=== PATIENT | male | born 1990 | race Hispanic/Latino ===

== ENCOUNTER 2020-11-12 11:28 | Inpatient (IN) | payer OTHER, SELFPAY ==
[2020-11-12] MEDS ORDERED: MAGNESIUM SULFATE 1 gm IVPB 1 GM/100 ML BAG IV ONE (12:51)
[2020-11-12] MEDS ORDERED: dexAMETHasone 10 MG/ML VIAL ONE (12:51)
[2020-11-12 13:09] LABS: Absolute Lymphocytes (CBC) 1.3 K/uL (0.7-4.9); Basophils % 0.2 % (0-1.3); Hematocrit 41.5 % (39.6-49.0); Lymphocytes % 6.7 % (15.3-44.8); MPV 7.4 fL (7.6-11.3); RBC Red Blood Cell Count 4.96 M/uL (4.33-5.43)
[2020-11-12 13:16] LABS: Albumin 3.5 g/dL (3.4-5.0); Bilirubin Total 0.5 mg/dL (0.2-1.0); Ferritin 400.1 ng/mL (26-388); Protein, Total 8.5 g/dL (6.4-8.2)
[2020-11-12 13:46] LABS: Blood Morphology Comment NOT SEEN (NOT SEEN); Platelet Estimate ADEQ
--- NOTE | 2020-11-12 13:57 | EDPHYS ---
Physician Documentation [facility] Name: Aaron Hernandez Age: 30 yrs Sex: Male : 1990 Arrival Date: 11/12/2020 Time: 11:30 Bed 26 Private MD: ED Physician Osmar Evans HPI: 11/12 12:15 This 30 yrs old Male presents to ER via Ambulatory with complaints of Low O2 jmm Covid+. 12:15 The patient has shortness of breath at rest. Onset: The symptoms/episode began/occurred jmm gradually, 4 day(s) ago. Duration: The symptoms are continuous, and are steadily getting worse. The patient's shortness of breath is aggravated by nothing, is alleviated by nothing. Associated signs and symptoms: Pertinent positives: non-productive cough, Pertinent negatives: loss of consciousness, vomiting. Patient recently diagnosed with covid 19 and and prescribed hydroxychloroquine and azithromycin with no relief of symptoms. . Historical: - Allergies: 11:50 No Known Allergies; ss - PMHx: 11:50 Ulcers; ss - PSHx: 11:50 None; ss - Immunization history:: Adult Immunizations up to date. - Social history:: Smoking status: Patient denies any tobacco usage or history of. ROS: 12:15 Cardiovascular: Negative for chest pain, palpitations, and edema. jmm 12:15 Constitutional: Positive for body aches, fever. 12:15 Respiratory: Positive for shortness of breath. 12:15 All other systems are negative. Exam: 12:15 Constitutional: This is a well developed, well nourished patient who is awake, alert, jmm and in no acute distress. Head/Face: atraumatic. Eyes: EOMI, no conjunctival erythema appreciated ENT: Moist Mucus Membranes Neck: Trachea midline, Supple Chest/axilla: Normal chest wall appearance and motion. Cardiovascular: Regular rate and rhythm. No edema appreciated Respiratory: Normal respirations, no respiratory distress appreciated Abdomen/GI: Non distended, soft Back: Normal ROM Skin: General appearance color normal MS/ Extremity: Moves all extremities, no obvious deformities appreciated, no edema noted to the lower extremities Neuro: Awake and alert, normal gait Psych: Behavior is normal, Mood is normal, Patient is cooperative and pleasant Vital Signs: 11:47 BP 133 / 94; Pulse 114; Resp 26; Temp 97.5(TE); Pulse Ox 95% ; Weight 113.4 kg; Height ss 5 ft. 7 in. (170.18 cm); Pain 7/10; 13:15 BP 103 / 76; Pulse 91; Resp 24; Pulse Ox 86% on R/A; hb 14:15 BP 118 / 82; Pulse 89; Resp 24; Pulse Ox 96% on 2 lpm NC; hb 15:41 BP 121 / 74; Pulse 88; Resp 24; Pulse Ox 95% on 2 lpm NC; hb 16:19 BP 118 / 86; Pulse 95; Resp 22; Pulse Ox 93% on 2 lpm NC; hb 11:47 Body Mass Index 39.16 (113.40 kg, 170.18 cm) ss MDM: 12:15 Patient medically screened. [facility] 13:55 Data reviewed: vital signs, nurses notes. Counseling: I had a detailed discussion with neri the patient and/or guardian regarding: the historical points, exam findings, and any diagnostic results supporting the discharge/admit diagnosis, lab results, radiology results, the need for further work-up and treatment in the hospital. ED course: I discussed the patient with Mr. Valle whom accepted the patient to Dr. Rubio service. . 11/12 12:17 Order name: CBC with Diff; Complete Time: 13:54 [facility] 11/12 12:17 Order name: CMP; Complete Time: 13:17 [facility] 11/12 12:17 Order name: Ferritin; Complete Time: 13:17 [facility] 11/12 12:17 Order name: CRP; Complete Time: 13:17 [facility] 11/12 12:17 Order name: D-Dimer; Complete Time: 13:19 [facility] 11/12 13:21 Order name: Manual Differential; Complete Time: 13:54 [facility] 11/12 17:48 Order name: PTT, Activated Partial Thromb; Complete Time: 18:20 [facility] 11/13 05:11 Order name: CBC with Automated Diff [facility] 11/13 05:23 Order name: Comprehensive Metabolic Panel [facility] 11/13 06:43 Order name: C-Reactive Protein [facility] 11/13 06:43 Order name: Ferritin [facility] 11/13 08:12 Order name: Procalcitonin [facility] 11/13 17:36 Order name: Blood Culture [facility] 11/14 06:10 Order name: CBC with Automated Diff [facility] 11/12 17:11 Order name: RAD; Complete Time: 17:17 [facility] 11/14 06:25 Order name: C-Reactive Protein [facility]MS 11/14 06:25 Order name: Ferritin EDMS 11/14 08:38 Order name: Manual Differential EDMS Administered Medications: 12:47 Drug: Decadron - Dexamethasone 10 mg Route: IVP; Site: right antecubital; hb 12:47 Drug: Magnesium Sulfate 1 grams Route: IVPB; Infused Over: 1 hrs; Site: right hb antecubital; 11/13 00:04 CANCELLED (Physician Discretion): GI Cocktail without - (Maalox Suspension 30 mg2 ml, Lidocaine Liquid 2 % 15 ml) PO once Disposition: 11/12/20 13:56 Hospitalization ordered by Indio Rubio for Observation. Preliminary diagnosis are Coronavirus infection, unspecified, Hypoxia. - Bed requested for [facility] ER HOLD. - Status is Observation. aa5 - Condition is Stable. - Problem is new. - Symptoms are unchanged. Addendum: 11/16/2020 09:24 Co-signature as Attending Physician, Osmar Evans MD I agree with the assessment and k dr plan of care. Signatures: Dispatcher [employer] EDAK Osmar Evans MD MD [facility] Maurice Nance PA PA [facility] Hailee Baires, RN RN aa5 Amy Hill RN RN Alvina Dela Cruz RN RN Tyrell Cole RN RN mg2 Corrections: (The following items were deleted from the chart) 11/12 17:49 13:56 Hospitalization Ordered by Indio Rubio DO for Observation. Preliminary ss diagnosis is Coronavirus infection, unspecified; Hypoxia. Bed requested for Telemetry/MedSurg (observation). Status is Observation. Condition is Stable. Problem is new. Symptoms are unchanged. neri 11/13 00:04 11/12 23:38 GI Cocktail without - (Maalox 30 ml, Lidocaine 15 ml) PO once mg2 ordered. mg2 11/14 13:37 11/12 17:49 11/12/2020 13:56 Hospitalization Ordered by Indio Rubio DO for aa5 Observation. Preliminary diagnosis is Coronavirus infection, unspecified; Hypoxia. Bed requested for [facility] ER HOLD. Status is Observation. Condition is Stable. Problem is new. Symptoms are unchanged. ss
--- NOTE | 2020-11-12 13:57 | ER ---
Nurse's Notes [facility] Name: Aaron Hernandez Age: 30 yrs Sex: Male : 1990 Arrival Date: 11/12/2020 Time: 11:30 Bed 26 Private MD: Diagnosis: Coronavirus infection, unspecified;Hypoxia Presentation: 11/12 11:47 Chief complaint: Patient states: Diagnosed with COVID on Tuesday. PT reports Low O2 ss 88% at home today. Coronavirus screen: Client denies travel out of the [place] in the last 14 days. Ebola Screen: Patient denies exposure to infectious person. Patient denies travel to an Ebola-affected area in the 21 days before illness onset. Initial Sepsis Screen: Does the patient meet any 2 criteria? Yes Does the patient have a suspected source of infection? No. Patient's initial sepsis screen is negative. Risk Assessment: Do you want to hurt yourself or someone else? Patient reports no desire to harm self or others. Onset of symptoms was November 08, 2020. 11:47 Method Of Arrival: Ambulatory ss 11:47 Acuity: STEPHAN 3 ss Historical: - Allergies: 11:50 No Known Allergies; ss - PMHx: 11:50 Ulcers; ss - PSHx: 11:50 None; ss - Immunization history:: Adult Immunizations up to date. - Social history:: Smoking status: Patient denies any tobacco usage or history of. Screenin:25 Abuse screen: Denies threats or abuse. Nutritional screening: No deficits noted. kg Tuberculosis screening: No symptoms or risk factors identified. Fall Risk None identified. Assessment: 12:07 General: Appears in no apparent distress. Behavior is calm, cooperative, appropriate kg for age, quiet. Pain: Complains of pain in chest Pain currently is 6 out of 10 on a pain scale. at worst was 8 out of 10 on a pain scale. level that patient reports is acceptable is 3 out of 10 on a pain scale. Quality of pain is described as tight Pain began gradually, 2-3 days ago. Is continuous, Alleviated by rest, Aggravated by exercise, increased activity, coughing. Neuro: No deficits noted. Cardiovascular: Heart tones S1 S2 Rhythm is sinus tachycardia Chest pain is described as mild, Pain is 6 out of 10 on a pain scale. quality is tightness. Respiratory: Reports shortness of breath at rest on exertion cough that is non-productive, pain with cough since 11/08 pain with movement since 11/08 pain with respiration since 11/08 Airway is patent Trachea midline Respiratory effort is even, labored, Respiratory pattern is tachypnea Sputum is thick, white Breath sounds are clear bilaterally. the patient has moderate shortness of breath. GI: Reports diarrhea, nausea, vomiting. : No deficits noted. EENT: No deficits noted. Derm: No deficits noted. Musculoskeletal: No deficits noted. 12:23 Reassessment: Did 2 min walk test with patient in room. Lowest the patients 02 on RA kg was 92 % highest HR-162. Pt stated tolerated the walk test okay but stated that he was tired. . 13:16 Reassessment: SpO2 uper 80s on RA, improved to >94% on 2LNC. ELBA Richards notified. hb 14:17 Reassessment: Patient appears in no apparent distress at this time. Patient and/or hb family updated on plan of care and expected duration. Pain level reassessed. Admission ordered, awaiting room assignment at this time. 15:30 Reassessment: Patient appears in no apparent distress at this time. No changes from hb previously documented assessment. Patient and/or family updated on plan of care and expected duration. Pain level reassessed. 16:19 Reassessment: Patient appears in no apparent distress at this time. No changes from hb previously documented assessment. Patient and/or family updated on plan of care and expected duration. Pain level reassessed. Patient is alert, oriented x 3, equal unlabored respirations, skin warm/dry/pink. Vital Signs: 11:47 BP 133 / 94; Pulse 114; Resp 26; Temp 97.5(TE); Pulse Ox 95% ; Weight 113.4 kg; Height ss 5 ft. 7 in. (170.18 cm); Pain 7/10; 13:15 BP 103 / 76; Pulse 91; Resp 24; Pulse Ox 86% on R/A; hb 14:15 BP 118 / 82; Pulse 89; Resp 24; Pulse Ox 96% on 2 lpm NC; hb 15:41 BP 121 / 74; Pulse 88; Resp 24; Pulse Ox 95% on 2 lpm NC; hb 16:19 BP 118 / 86; Pulse 95; Resp 22; Pulse Ox 93% on 2 lpm NC; hb 11:47 Body Mass Index 39.16 (113.40 kg, 170.18 cm) ED Course: 11:30 Patient arrived in ED. rg4 11:49 Triage completed. ss 11:50 Arm band placed on right wrist. 11:54 Maurice Nance PA is PHCP. [facility] 11:54 Osmar Evans MD is Attending Physician. m 12:07 Carla Tompkins is Primary Nurse. kg 12:46 Inserted saline lock: 20 gauge in right antecubital area, using aseptic technique. hb Blood collected. 13:56 Indio Rubio DO is Hospitalizing Provider. m 19:58 Patient has correct armband on for positive identification. mg2 19:58 No provider procedures requiring assistance completed. Patient admitted, IV remains in mg2 place. 11/13 00:36 Report given to Kassandra FOSTER. kg 03:55 Primary Nurse role handed off by Carla Tompkins 2 20:35 Katerina Le RN is Primary Nurse. [facility] 11/14 09:18 Primary Nurse role handed off by Katerina Le RN 09:18 Carla Tompkins is Primary Nurse. kg Administered Medications: 11/12 12:47 Drug: Decadron - Dexamethasone 10 mg Route: IVP; Site: right antecubital; hb 12:47 Drug: Magnesium Sulfate 1 grams Route: IVPB; Infused Over: 1 hrs; Site: right hb antecubital; 11/13 00:04 CANCELLED (Physician Discretion): GI Cocktail without - (Maalox Suspension 30 mg2 ml, Lidocaine Liquid 2 % 15 ml) PO once Outcome: 11/12 13:56 Decision to Hospitalize by Provider. [facility] 19:58 Admitted to ER Hold. Please see [facility] for further documentation. mg2 19:58 Condition: stable 19:58 Instructed on the need for admit, Demonstrated understanding of instructions. 11/14 13:37 Patient left the ED. aa5 Signatures: Maurice Nance PA PA [facility] Katerina Le, KRISTIN RN cr4 Hailee Baires RN RN aa5 Amy Hill RN RN Alvina Dela Cruz RN RN Damaris Becerril rg4 Rajani Joshi mw2 Gardose, TyrellKRISTIN RN, Kristen kg Corrections: (The following items were deleted from the chart) 11/12 13:19 13:15 BP 103 / 76; Pulse 91bpm; Resp 24bpm; Pulse Ox 89% RA; hb hb 13:20 13:16 Reassessment: Patient appears in no apparent distress at this time. No changes hb from previously documented assessment. hb
--- NOTE | 2020-11-12 15:29 | P.HP ---
Certification for Inpatient With expected LOS: >2 Midnights Patient will require the following post-hospital care: None Practitioner: I am a practitioner with admitting privileges, knowledge of patient current condition, hospital course, and medical plan of care. Services: Services provided to patient in accordance with Admission requirements found in Title 42 Section 412.3 of the Code of Federal Regulations Patient History Date of Service: 11/12/20 Reason for admission: SOB History of Present Illness: Patient is a 30-year-old male with a past medical history significant for asthma and Gastric Ulcer who presents complaint of shortness of breath that has become increasingly worse over time. Patient reported that he initially started having runny nose, congestion, sore throat and chills. Patient indicated that symptoms lasted for 1 week. Patient reported that he tested positive for coviid 19 infection at an outpatient facility 4 days ago. Patient reports associated s igns and symptoms of cough, generalized body aches, chest tightness, nausea, vomiting, diarrhea, loss of appetite, weakness and fatigue. Patient denies any other signs and symptoms. Symptoms are aggravated or relieved by nothing. The patient reported that he checked his O2 sat this morning and noted that it was 88% on room air. Patient decided to present to the hospital due to worsening shortness of breath and other symptoms. Allergies No Known Allergies Allergy (Unverified 10/02/15 04:06) Home medications list reviewed: Yes - Past Medical/Surgical History Diabetic: No -: Asthma - Social History Smoking Status: Never smoker Smoking therapy provided: No Patient receptive to therapy: No Alcohol use: Yes CD- Drugs: No Caffeine use: No Place of Residence: Home Review of Systems General: Fever, Chills, Weakness, Malaise Eyes: Unremarkable ENT: Throat Pain Respiratory: Cough, Shortness of Breath, SOB with Excertion Cardiovascular: Unremarkable Gastrointestinal: Nausea, Vomiting, Diarrhea Genitourinary: Unremarkable Musculoskeletal: Unremarkable Integumentary: Unremarkable Neurological: Weakness Lymphatics: Enlarged lymph nodes Physical Examination - Physical Exam General: Alert, In no apparent distress, Oriented x3, Cooperative, Mild distress HEENT: Atraumatic, Normocephalic, PERRLA, Mucous membr. moist/pink, EOMI, Sclerae nonicteric Neck: Supple, 2+ carotid pulse no bruit, No LAD, Without JVD or thyroid abnormality Respiratory: Diminished, Crackles/rales Cardiovascular: No edema, Regular rate/rhythm, Normal S1 S2 Capillary refill: <2 Seconds Gastrointestinal: Normal bowel sounds, Non-distended, No tenderness Musculoskeletal: No clubbing, No swelling, No tenderness Integumentary: No rashes, No breakdown Neurological: Normal gait, Normal speech, Normal strength at 5/5 x4 extr, Normal tone, Normal affect Lymphatics: No axilla or inguinal lymphadenopathy External genitalia: Deferred Rectal: Deferred - Studies Laboratory Data (last 24 hrs) 11/12/20 12:46: Sodium 136, Potassium 4.0, BUN 16, Creatinine 1.29, Glucose 120 H, Total Bilirubin 0.5, AST 20, ALT 40, Alkaline Phosphatase 52 11/12/20 12:46: WBC 20.10 H*, Hgb 13.6, Hct 41.5, Plt Count 392 Assessment and Plan - Plan --Covid 19 pneumoniae. Patient placed on antibiotics, steroids and albuterol inhaler. Wound Care Rn consulted. Continue supportive care with thiamine\vitamin-D\Famotidine\vitamin-C\zinc. Will await further recommendations from drawer waxer. --Covid 19 infection. Continue current treatment regimen. Continue droplet and contact precautions. Further management per drawer waxer. --Moderate Open asthma exacerbation. Continue albuterol inhaler and current treatment regimen. --Leukocytosis. Blood cultures pending. Continue antibiotics. --Hx of Gastric ulcers. Patient placed Protonix IV. --DVT prophylaxis with Lovenox subQ Discharge Plan: Home Plan to discharge in: Greater than 2 days - Advance Directives Does patient have a Living Will: No Does patient have a Durable POA for Healthcare: No - Code Status/Comfort Care Code Status Assessed: Yes Code Status: Full Code Critical Care: No
[2020-11-12] MEDS ORDERED: AZITHROMYCIN IV 500 MG in NA CHLORIDE 0.9% 250 ML IVPB SCH (16:00)
[2020-11-12] MEDS ORDERED: dexAMETHasone 10 MG/ML VIAL IV SCH (16:00)
[2020-11-12] MEDS ORDERED: CEFTRIAXONE/SWI 1gm 1 GM/10 ML SYR IVP SCH (16:00)
[2020-11-12] MEDS ORDERED: ALBUTEROL INHALER 60 PUFF/8 GM IH PRN (16:37)
[2020-11-12] MEDS ORDERED: ACETAMINOPHEN 500 MG TAB PO PRN (16:37)
[2020-11-12] MEDS ORDERED: ZOLPIDEM TARTRATE 5 MG TABLET PO PRN (16:37)
[2020-11-12] MEDS ORDERED: SODIUM CHLORIDE 0.9% 10ML INJ IV PRN (16:37)
[2020-11-12] MEDS ORDERED: ONDANSETRON 4 MG/2 ML VIAL IV PRN (16:37)
[2020-11-12] MEDS ORDERED: TRAMADOL HCL 50 MG TAB PO PRN (16:37)
[2020-11-12] MEDS: ENOXAPARIN 40 MG/0.4 ML SQ SCH (17:00)
--- NOTE | 2020-11-12 17:10 | RAD REPORT ---
EXAM DESCRIPTION: RAD - Chest Pa And Lat (2 Views) - 11/12/2020 4:56 pm CLINICAL HISTORY: SOB Chest pain. COMPARISON: CHEST SINGLE VIEW dated 09/21/2015 FINDINGS: There is moderately severe bilateral interstitial lung opacities present most compatible w ith pulmonary viral infection. The heart is normal in size.
[2020-11-12] MEDS ORDERED: METHYLPREDNISOLONE 40 MG INJ IV SCH (18:00)
[2020-11-12] MEDS ORDERED: CEFTRIAXONE 1000 MG/VIAL ONE (18:35)
[2020-11-12] MEDS ORDERED: AZITHROMYCIN 500 MG INJ IVPB ONE (18:35)
[2020-11-12] MEDS ORDERED: ENOXAPARIN 40 MG/0.4 ML SQ ONE (18:35)
[2020-11-12] MEDS ORDERED: NA CHLORIDE 0.9% 250 ML ONE (18:35)
[2020-11-12] MEDS ORDERED: FAMOTIDINE 20 MG/2 ML VIAL IV SCH (21:00)
[2020-11-12] MEDS ORDERED: FAMOTIDINE 20 MG/2 ML VIAL IV ONE (22:47)
[2020-11-12 23:35] VITALS: BMI 39.1
[2020-11-13 05:04] LABS: Absolute Lymphocytes (CBC) 1.4 K/uL (0.7-4.9); Basophils % 0.1 % (0-1.3); Hematocrit 38.1 % (39.6-49.0); Lymphocytes % 7.3 % (15.3-44.8); MPV 7.3 fL (7.6-11.3); RBC Red Blood Cell Count 4.63 M/uL (4.33-5.43)
[2020-11-13 05:23] LABS: Albumin 3.1 g/dL (3.4-5.0); Bilirubin Total 0.3 mg/dL (0.2-1.0); Potassium 4.4 mmol/L (3.5-5.1)
[2020-11-13] MEDS ORDERED: BENZONATATE 100 MG CAP PO PRN (06:41)
[2020-11-13 06:42] LABS: Ferritin 461.1 ng/mL (26-388)
[2020-11-13] MEDS: BUDESONIDE 0.25 MG/2 ML NEB NEB SCH ×2 (08:00→19:47)
[2020-11-13] MEDS: ENOXAPARIN 40 MG/0.4 ML SQ SCH (09:00)
[2020-11-13] MEDS ORDERED: VITAMIN D 1000 UNIT TAB PO SCH ×2 (09:00)
[2020-11-13] MEDS: METHYLPREDNISOLONE 125 MG INJ IV SCH ×3 (09:00→21:00)
[2020-11-13] MEDS ORDERED: ZINC SULFATE 220 MG CAP PO SCH (09:00)
[2020-11-13] MEDS: ASPIRIN EC 81 MG TAB PO SCH ×2 (09:00)
[2020-11-13] MEDS ORDERED: ASCORBIC ACID 500 MG TABLET PO SCH (09:00)
[2020-11-13] MEDS: FAMOTIDINE 20 MG TAB PO SCH ×2 (09:00→21:00)
[2020-11-13] MEDS ORDERED: THIAMINE HCL 100 MG TABLET PO SCH (09:00)
[2020-11-13] MEDS ORDERED: PANTOPRAZOLE 40 MG INJ IVP SCH (09:00)
[2020-11-13] MEDS: ASCORBIC ACID 500 MG TABLET PO SCH ×3 (09:00→21:00)
[2020-11-13] MEDS: THIAMINE HCL 100 MG TABLET PO SCH ×2 (09:00→21:00)
--- NOTE | 2020-11-13 09:15 | P.DS ---
Admission Date: 11/12/20 Discharge Date: 11/13/20 Primary Care Provider: ADEN Disposition: ROUTINE DISCHARGE Discharge Condition: GOOD Reason for Admission: SOB Consultations: Pulmonary-Dr. Dubois Procedures: COVID: Positive CXR: COMPARISON: CHEST SINGLE VIEW dated 09/21/2015 FINDINGS: There is moderately severe bilateral interstitial lung opacities present most compatible with pulmonary viral infection. The heart is normal in size. Medical problem list: Shortness of breath secondary to bilateral COVID-19 pneumonia with hypoxia Asthma Brief History of Present Illness: 30-year-old male with a past medical history significant for asthma and Gastric Ulcer who presents complaint of shortness of breath that has become increasingly worse over time. Patient reported that he initially started having runny nose, congestion, sore throat and chills. Patient indicated that symptoms lasted for 1 week. Patient reported that he tested positive for COVID-19 infection at an outpatient facility 4 days ago. At that time patient was given a shot of Solu-Medrol. He was sent home with Plaquenil, inhaler. His condition has not improved. Patient was evaluated in the emergency room yesterday. He was found to be hypoxic. X-ray shows evidence of Covid pneumonia. Patient admitted for further evaluation and treatment. Hospital Course: Patient presented with increasing shortness of breath, fatigue and cough. Patient was diagnosed with Covid pneumonia recently. He was sent home with Plaquenil and inhaler therapy without any improvement. Patient was found to be hypoxic. Patient required hospitalization. Patient has improved with IV steroids and supplementation. Patient seen by pulmonology. At discharge patient without significant shortness of breath. Patient still requires oxygen at discharge. At discharge home oxygen will be arranged to maintain sats above 93%. Patient currently on 2 L per nasal cannula. At discharge patient will continue with prednisone 20 mg 1 pill twice daily for 7 days then 1 pill once daily for 7 days. With his history of asthma patient will continue with Pulmicort 1 puff twice daily and albuterol 2 puffs 3 times a day as needed for shortness of breath. Patient will be given a limited supply of Tessalon Perles 100 mg 1 pill 3 times a day as needed for cough. Patient will continue with oral supplementation including vitamin C 500 mg 3 times a day, vitamin D 2000 units daily, zinc 220 mg daily, and thiamine 100 mg 1 pill twice daily. Patient will also continue with aspirin 81 mg daily. Patient will follow up with pulmonology within 1 week to follow-up his hospitalization and continue his care. Patient may also follow-up with his PCP within 1 week to follow-up his hospitalization. Patient will continue with CDC guidelines on Covid isolation. Patient will continue with proning, incentive spirometer use, facemask use, social distancing and handwashing at home. Education on COVID-19 will be provided. Further adjustment in medication and oxygen can be done by pulmonology at follow-up. As mentioned above patient with history of asthma. Will recommend to start Pulmicort 1 puff twice daily. Patient will continue with albuterol 2 puffs 3 t imes a day as needed for shortness of breath. Recommend follow-up with pulmonology to further monitor and adjust medication. Patient likely with underlying GERD. At discharge patient will continue with Pepcid 20 mg 1 pill twice daily. Vital Signs/Physical Exam: Temp Pulse Resp BP Pulse Ox 97.9 F 96 H 18 103/63 91 11/13/20 08:00 11/13/20 08:00 11/13/20 08:00 11/13/20 08:00 11/13/20 08:00 General: Alert, In no apparent distress, Oriented x3, Cooperative HEENT: Atraumatic Neck: Supple Respiratory: Other (Good air movement bilateral. Currently on 2 L per nasal cannula. Slight crackles to the bases) Cardiovascular: Normal pulses, Regular rate/rhythm Gastrointestinal: Normal bowel sounds, Soft and benign, Non-distended, No tenderness, No masses, No rebound, No guarding Musculoskeletal: No erythema, No tenderness, No warmth Integumentary: No tenderness/swelling Neurological: Normal speech, Normal strength at 5/5 x4 extr, Normal tone, Normal affect Laboratory Data at Discharge: WBC 19.80 K/uL (4.3-10.9) H 11/13/20 04:25 Hgb 13.2 g/dL (13.6-17.9) L 11/13/20 04:25 Hct 38.1 % (39.6-49.0) L 11/13/20 04:25 Plt Count 401 K/uL (152-406) 11/13/20 04:25 APTT 26.3 SECONDS (24.3-36.9) 11/12/20 17:22 Sodium 137 mmol/L (136-145) 11/13/20 04:25 Potassium 4.4 mmol/L (3.5-5.1) 11/13/20 04:25 BUN 18 mg/dL (7-18) 11/13/20 04:25 Creatinine 1.05 mg/dL (0.55-1.3) 11/13/20 04:25 Glucose 129 mg/dL (74-106) H 11/13/20 04:25 Total Bilirubin 0.3 mg/dL (0.2-1.0) 11/13/20 04:25 AST 21 U/L (15-37) 11/13/20 04:25 ALT 40 U/L (12-78) 11/13/20 04:25 Alkaline Phosphatase 50 U/L (45-117) 11/13/20 04:25 Home Medications: Albuterol Inhaler [Ventolin Inhaler*] 2 puff IH Q6H PRN #1 hfa.aer.ad 11/13/20 Ascorbic Acid [Vitamin C*] 500 mg PO TID #90 tablet 11/13/20 Aspirin [Aspirin EC 81 MG] 81 mg PO DAILY #90 tablet. 11/13/20 Benzonatate [Tessalon Perle*] 100 mg PO TID PRN #10 cap 11/13/20 Budesonide [Pulmicort Flexhaler] 1 puff IH BID #1 aer.pow.ba 11/13/20 Cholecalciferol (Vitamin D3) [Vitamin D 1000 Iu Tab*] 2,000 unit PO DAILY #60 tab 11/13/20 Famotidine [Pepcid*] 20 mg PO BID #60 tab 11/13/20 Thiamine HCl [Vitamin B-1*] 100 mg PO BID #60 tablet 11/13/20 Zinc Sulfate [Zinc Sulfate*] 220 mg PO DAILY #30 cap 11/13/20 predniSONE [Prednisone*] 20 mg PO SEECOM #21 tab 11/13/20 New Medications: Aspirin [Aspirin EC 81 MG] 81 mg PO DAILY #90 tablet. Famotidine [Pepcid*] 20 mg PO BID #60 tab predniSONE [Prednisone*] 20 mg PO SEECOM #21 tab Budesonide [Pulmicort Flexhaler] 1 puff IH BID #1 aer.pow.ba Benzonatate [Tessalon Perle*] 100 mg PO TID PRN #10 cap PRN Reason: Cough Albuterol Inhaler [Ventolin Inhaler*] 2 puff IH Q6H PRN #1 hfa.aer.ad PRN Reason: Shortness Of Breath Thiamine HCl [Vitamin B-1*] 100 mg PO BID #60 tablet Ascorbic Acid [Vitamin C*] 500 mg PO TID #90 tablet Cholecalciferol (Vitamin D3) [Vitamin D 1000 Iu Tab*] 2,000 unit PO DAILY #60 tab Zinc Sulfate [Zinc Sulfate*] 220 mg PO DAILY #30 cap Physician Discharge Instructions: Patient presented with increasing shortness of breath, fatigue and cough. Patient was diagnosed with Covid pneumonia recently. He was sent home with Plaquenil and inhaler therapy without any improvement. Patient was found to be hypoxic. Patient required hospitalization. Patient has improved with IV steroids and supplementation. Patient seen by pulmonology. At discharge patient without significant shortness of breath. Patient still requires oxygen at discharge. At discharge home oxygen will be arranged to maintain sats above 93%. Patient currently on 2 L per nasal cannula. At discharge patient will continue with prednisone 20 mg 1 pill twice daily for 7 days then 1 pill once daily for 7 days. With his history of asthma patient will continue with Pulmicort 1 puff twice daily and albuterol 2 puffs 3 times a day as needed for shortness of breath. Patient will be given a limited supply of Tessalon Perles 100 mg 1 pill 3 times a day as needed for cough. Patient will continue with oral supplementation including vitamin C 500 mg 3 times a day, vitamin D 2000 units daily, zinc 220 mg daily, and thiamine 100 mg 1 pill twice daily. Patient will also continue with aspirin 81 mg daily. Patient will follow up with pulmonology within 1 week to follow-up his hospitalization and continue his c are. Patient may also follow-up with his PCP within 1 week to follow-up his hospitalization. Patient will continue with CDC guidelines on Covid isolation. Patient will continue with proning, incentive spirometer use, facemask use, social distancing and handwashing at home. Education on COVID-19 will be provided. Further adjustment in medication and oxygen can be done by pulmonology at follow-up. As mentioned above patient with history of asthma. Will recommend to start Pulmicort 1 puff twice daily. Patient will continue with albuterol 2 puffs 3 times a day as needed for shortness of breath. Recommend follow-up with pulmonology to further monitor and adjust medication. Patient likely with underlying GERD. At discharge patient will continue with Pepcid 20 mg 1 pill twice daily. Diet: AHA Activity: Ad gagandeep Followup: OOTRosaOT [Primary Care Provider] - Time spent managing pt's care (in minutes): 55
[2020-11-13] MEDS ORDERED: ASCORBIC ACID 500 MG TABLET ONE ×3 (09:35→20:35)
[2020-11-13] MEDS ORDERED: METHYLPREDNISOLONE 125 MG INJ ONE ×2 (09:35→13:42)
[2020-11-13] MEDS ORDERED: VITAMIN D 1000 UNIT TAB ONE (09:35)
[2020-11-13] MEDS ORDERED: ASPIRIN 81 MG CHEWABLE TABLET ONE (09:35)
[2020-11-13] MEDS ORDERED: ZINC SULFATE 220 MG CAP ONE (09:35)
[2020-11-13] MEDS ORDERED: THIAMINE HCL 100 MG TABLET ONE (09:35)
[2020-11-13] MEDS ORDERED: ENOXAPARIN 40 MG/0.4 ML SQ ONE (09:36)
[2020-11-13] MEDS ORDERED: FAMOTIDINE 20 MG TAB ONE ×3 (09:36→20:36)
[2020-11-13] MEDS ORDERED: BUDESONIDE 0.25 MG/2 ML NEB ONE (19:53)
[2020-11-13] MEDS ORDERED: METHYLPREDNISOLONE 40 MG INJ ONE (20:35)
[2020-11-13] MEDS ORDERED: VITAMIN B COMPLEX 1 CAP ONE (20:38)
[2020-11-14 06:04] LABS: Absolute Lymphocytes (CBC) 1.4 K/uL (0.7-4.9); Basophils % 0.1 % (0-1.3); Hematocrit 38.3 % (39.6-49.0); Lymphocytes % 6.3 % (15.3-44.8); MPV 7.1 fL (7.6-11.3); RBC Red Blood Cell Count 4.63 M/uL (4.33-5.43)
[2020-11-14 06:24] LABS: C-Reactive Protein 80.5 mg/L (<3.00); Ferritin 508.6 ng/mL (26-388)
--- NOTE | 2020-11-14 07:40 | P.DS ---
Admission Date: 11/12/20 Discharge Date: 11/14/20 Primary Care Provider: OOT Disposition: ROUTINE DISCHARGE Discharge Condition: GOOD Reason for Admission: SOB Consultations: Pulmonary-Dr. Dubois Procedures: COVID: Positive CXR: COMPARISON: CHEST SINGLE VIEW dated 09/21/2015 FINDINGS: There is moderately severe bilateral interstitial lung opacities present most compatible with pulmonary viral infection. The heart is normal in size. Blood Cultures: Negative Medical problem list: Shortness of breath secondary to bilateral COVID-19 pneumonia with hypoxia Leukocytosis secondary to above and steroid related Asthma Brief History of Present Illness: 30-year-old male with a past medical history significant for asthma and Gastric Ulcer who presents complaint of shortness of breath that has become increasingly worse over time. Patient reported that he initially started having runny nose, congestion, sore throat and chills. Patient indicated that symptoms lasted for 1 week. Patient reported that he tested positive for COVID-19 infection at an outpatient facility 4 days ago. At that time patient was given a shot of Solu-Medrol. He was sent home with Plaquenil, inhaler. His condition has not improved. Patient was evaluated in the emergency room yesterday. He was found to be hypoxic. X-ray shows evidence of Covid pneumonia. Patient admitted for further evaluation and treatment. Hospital Course: Patient presented with increasing shortness of breath, fatigue and cough. Patient was diagnosed with Covid pneumonia recently. He was sent home with Plaquenil and inhaler therapy without any improvement with his PCP. Patient was given steroid shot at that time. Patient was found to be hypoxic in the ER. Chest x-ray showed bilateral Covid pneumonia. Patient required hospitalization. Patient has improved with IV steroids and supplementation. Patient seen by pulmonology. At discharge patient without significant shortness of breath. Patient able to ambulate with oxygen. No significant distress. Blood cultures negative. White count remains elevated likely related to steroids and Covid pneumonia. No evidence of sepsis identified. Patient still requires oxygen at discharge. At discharge home oxygen will be arranged to maintain sats above 93%. Patient currently on 3-4 L per nasal cannula. At discharge patient will continue with prednisone 20 mg 1 pill twice daily for 7 days then 1 pill once daily for 7 days. With his history of asthma patient will continue with Pulmicort 1 puff twice daily and albuterol 2 puffs 3 times a day as needed for shortness of breath. Patient will be given a limited supply of Tessalon Perles 100 mg 1 pill 3 times a day as needed for cough. Patient will continue with oral supplementation including vitamin C 500 mg 3 times a day, vitamin D 2000 units daily, zinc 220 mg daily, and thiamine 100 mg 1 pill twice daily. Patient will also continue with aspirin 81 mg daily. Patient will follow up with pulmonology within 1 week to follow-up his hospitalization and continue his care. Patient may also follow-up with his PCP within 1 week to follow-up his hospitalization. Patient will continue with CDC guidelines on Covid isolation. Patient will continue with proning, incentive spirometer use, facemask use, social distancing and handwashing at home. Education on COVID-19 will be provided. Further adjustment in medication and oxygen can be done by pulmonology at follow-up. Recommend follow-up with his PCP in 1 week to follow- up his hospitalization. As mentioned above patient with history of asthma. He will continue with steroids as above. Will recommend to start Pulmicort 1 puff twice daily for his asthma at discharge. Patient will continue with albuterol 2 puffs 3 times a day as needed for shortness of breath. Recommend follow-up with pulmonology to further monitor and adjust medication. Patient likely with underlying GERD. At discharge patient will continue with Pepcid 20 mg 1 pill twice daily. Vital Signs/Physical Exam: Temp Pulse Resp BP Pulse Ox 97.9 F 72 19 109/69 96 11/14/20 04:00 11/14/20 04:00 11/14/20 04:00 11/14/20 04:00 11/14/20 04:00 General: Alert, In no apparent distress, Oriented x3, Cooperative, Other (Patient afebrile.) HEENT: Atraumatic Neck: Supple Respiratory: Other (Patient remains on oxygen. No significant distress noted. No significant tachypnea or tachycardia.) Cardiovascular: Regular rate/rhythm Gastrointestinal: No guarding Integumentary: No tenderness/swelling Neurological: Normal speech, Normal strength at 5/5 x4 extr, Normal tone, Normal affect Laboratory Data at Discharge: WBC 22.80 K/uL (4.3-10.9) H* D 11/14/20 05:36 Hgb 12.9 g/dL (13.6-17.9) L 11/14/20 05:36 Hct 38.3 % (39.6-49.0) L 11/14/20 05:36 Plt Count 482 K/uL (152-406) H D 11/14/20 05:36 APTT 26.3 SECONDS (24.3-36.9) 11/12/20 17:22 Sodium 137 mmol/L (136-145) 11/13/20 04:25 Potassium 4.4 mmol/L (3.5-5.1) 11/13/20 04:25 BUN 18 mg/dL (7-18) 11/13/20 04:25 Creatinine 1.05 mg/dL (0.55-1.3) 11/13/20 04:25 Glucose 129 mg/dL (74-106) H 11/13/20 04:25 Total Bilirubin 0.3 mg/dL (0.2-1.0) 11/13/20 04:25 AST 21 U/L (15-37) 11/13/20 04:25 ALT 40 U/L (12-78) 11/13/20 04:25 Alkaline Phosphatase 50 U/L (45-117) 11/13/20 04:25 Home Medications: Albuterol Sulfate [Proair Hfa] 1 inh IN DAILY PRN 11/13/20 Ascorbic Acid [Vitamin C*] 500 mg PO TID #90 tablet 11/13/20 Azithromycin 500 mg PO DAILY 11/13/20 Budesonide [Pulmicort Flexhaler] 1 puff IH BID #1 aer.pow.ba 11/13/20 Cholecalciferol (Vitamin D3) [Vitamin D 1000 Iu Tab*] 2,000 unit PO DAILY #60 tab 11/13/20 Famotidine [Pepcid*] 20 mg PO BID #60 tab 11/13/20 Hydroxychloroquine [Plaquenil*] 200 mg PO BID 11/13/20 Pantoprazole [Protonix Tab*] 40 mg PO DAILY 11/13/20 Thiamine HCl [Vitamin B-1*] 100 mg PO BID #60 tablet 11/13/20 Zinc Sulfate [Zinc Sulfate*] 220 mg PO DAILY #30 cap 11/13/20 New Medications: Famotidine [Pepcid*] 20 mg PO BID #60 tab Budesonide [Pulmicort Flexhaler] 1 puff IH BID #1 aer.pow.ba Thiamine HCl [Vitamin B-1*] 100 mg PO BID #60 tablet Ascorbic Acid [Vitamin C*] 500 mg PO TID #90 tablet Cholecalciferol (Vitamin D3) [Vitamin D 1000 Iu Tab*] 2,000 unit PO DAILY #60 tab Zinc Sulfate [Zinc Sulfate*] 220 mg PO DAILY #30 cap Physician Discharge Instructions: Patient presented with increasing shortness of breath, fatigue and cough. Patient was diagnosed with Covid pneumonia recently. He was sent home with Plaquenil and inhaler therapy without any improvement with his PCP. Patient was given steroid shot at that time. Patient was found to be hypoxic in the ER. Chest x-ray showed bilateral Covid pneumonia. Patient required hospitalization. Patient has improved with IV steroids and supplementation. Patient seen by pulmonology. At discharge patient without significant shortness of breath. Patient able to ambulate with oxygen. No significant distress. Blood cultures negative. White count remains elevated likely related to steroids and Covid pneumonia. No evidence of sepsis identified. Patient still requires oxygen at discharge. At discharge home oxygen will be arranged to maintain sats above 93%. Patient currently on 3-4 L per nasal cannula. At discharge patient will continue with prednisone 20 mg 1 pill twice daily for 7 days then 1 pill once daily for 7 days. With his history of asthma patient will continue with Pulmicort 1 puff twice daily and albuterol 2 puffs 3 times a day as needed for shortness of breath. Patient will be given a limited supply of Tessalon Perles 100 mg 1 pill 3 times a day as needed for cough. Patient will continue with oral supplementation including vitamin C 500 mg 3 times a day, vitamin D 2000 units daily, zinc 220 mg daily, and thiamine 100 mg 1 pill twice daily. Patient will also continue with aspirin 81 mg daily. Patient will follow up with pulmonology within 1 week to follow-up his hospitalization and continue his car e. Patient may also follow-up with his PCP within 1 week to follow-up his hospitalization. Patient will continue with CDC guidelines on Covid isolation. Patient will continue with proning, incentive spirometer use, facemask use, social distancing and handwashing at home. Education on COVID-19 will be provided. Further adjustment in medication and oxygen can be done by pulmonology at follow-up. Recommend follow-up with his PCP in 1 week to follow- up his hospitalization. As mentioned above patient with history of asthma. He will continue with steroids as above. Will recommend to start Pulmicort 1 puff twice daily for his asthma at discharge. Patient will continue with albuterol 2 puffs 3 times a day as needed for shortness of breath. Recommend follow-up with pulmonology to further monitor and adjust medication. Patient likely with underlying GERD. At discharge patient will continue with Pepcid 20 mg 1 pill twice daily. Diet: AHA Activity: Ad gagandeep Followup: OOTOOT [Primary Care Provider] - Time spent managing pt's care (in minutes): 55
[2020-11-14 08:38] LABS: Blood Morphology Comment NOT SEEN (NOT SEEN); Platelet Estimate ADEQ
[2020-11-14 13:28] VITALS: BP 116/81; TEMP 98.4
[2020-11-14 13:32] VITALS: O2SAT 97
== END 2020-11-14 14:04 | disposition home or self-care (01) | DRG 177 ==
LOC: ER 11:28 → ERHOLD 14:49
PROVIDERS: ADMIT Family Medicine; ATTEND Family Medicine
DX: U07.1 COVID-19 (principal); J12.82 Pneumonia due to coronavirus disease 2019; J45.41 Moderate persistent asthma with (acute) exacerbation; D72.829 Elevated white blood cell count, unspecified; K21.9 Gastro-esophageal reflux disease without esophagitis; T38.0X5A Adverse effect of glucocorticoids and synthetic analogues, initial encounter; R09.02 Hypoxemia; Z79.82 Long term (current) use of aspirin; Z79.52 Long term (current) use of systemic steroids; Z79.899 Other long term (current) drug therapy
CPT/HCPCS: 36415; 71046; 80053; 82728; 84145; 85025; 85379; 85730; 86140; 87040; 94640; 96374; 96375; 99285; J0456; J0460; J1100; J1650; J2920; J2930; J3475; J7050